=== PATIENT | female | born 1970 | race Caucasian/White ===

== ENCOUNTER → 2018-04-30 22:20 | Outpatient (CLI) | payer MEDICARE | END | disposition home or self-care (01) | LOC: D.MAMMO 13:15 | DX: Z12.31 Encounter for screening mammogram for malignant neoplasm of breast (principal) ==

== ENCOUNTER 2019-08-02 05:29 | Outpatient (CLI) | payer MEDICARE, OTHER ==
[~2019-08-02] VITALS: Ht 172.7 cm; Wt 90.9 kg
[2019-08-02 06:13] LABS: BASOPHILS 0.3 % (0-2); EOSINOPHILS 8.1 % (0-7); HEMATOCRIT 45.4 % (36.0-48.0); IMMATURE GRANULOCYTES 0.4 % (0-5); MCV 90.8 fL (80.0-100.0); MEAN PLATELET VOLUME 10.6 fL (7.4-10.4); MONOCYTES 5.9 % (2-11); NEUTROPHILS 58.3 % (40-80); PLATELET COUNT 179 10x3/uL (130-400); RDW 12.9 % (11.5-14.5)
[2019-08-02 06:14] LABS: APTT 27.1 SECONDS (22.8-39.4); INR 1.14 (0.85-1.17); PROTIME 14.1 SECONDS (11.6-15.0)
[2019-08-02 06:17] LABS: ANION GAP 10.2 mmol/L (8-16); CALCIUM 9.3 mg/dL (8.5-10.1); CARBON DIOXIDE 29.7 mmol/L (21.0-32.0); CREATININE - SERUM 0.9 mg/dL (0.6-1.3); POTASSIUM - SERUM 3.9 mmol/L (3.5-5.1)
[2019-08-02] MEDS ORDERED: CIMETIDINE200 MG PO (06:22)
[2019-08-02] MEDS ORDERED: SYNTHROID100 MCG PO (06:22)
[2019-08-02] MEDS ORDERED: ALPHAGAN P15 ML EACH EYE (06:22)
[2019-08-02] MEDS ORDERED: ZOCOR20 MG PO (06:22)
[2019-08-02] MEDS ORDERED: BENTYL10 MG PO (06:23)
[2019-08-02] MEDS ORDERED: ALENDRONATE SOD40 MG PO (06:23)
[2019-08-02] MEDS ORDERED: METAMUCIL PACKE1 PKT PO (06:24)
[2019-08-02] MEDS ORDERED: CITRACAL + D E1 EACH PO (06:24)
[2019-08-02 06:27] VITALS: Ht 172.7 cm; Wt 90.9 kg
[2019-08-02 07:20] LABS: HCG SERUM NEGATIVE (NEGATIVE)
--- NOTE | 2019-08-02 09:02 | NUR ---
0860 SEE POST PROCEDURE CHECKLIST FOR VITAL SIGN TRENDS. SISTER IN LAWS AT SIDE
--- NOTE | 2019-08-02 09:12 | NUR ---
0910 DOSING WITH HOB ELEVATED TO FULL POSITION, NO COUGHING NOTED. FAMILY AT SIDE. NPO.
--- NOTE | 2019-08-02 09:44 | NUR ---
5759 PT. SLEEPING, NO DISTRESS. FAMILY AT SIDE.
--- NOTE | 2019-08-02 10:03 | NUR ---
1000 SUKH GARCIA RN ROUNDS ON PT.
--- NOTE | 2019-08-02 10:43 | NUR ---
1045 PCXR HERE AND DONE. TOLERATED WELL
--- NOTE | 2019-08-02 11:36 | NUR ---
1135 PT ON O2 NC PER IR DEPT AND PT MEDICATED FOR MILD TO MODERATE PAIN AT INCISION SITE
--- NOTE | 2019-08-02 11:40 | NUR ---
1000 PT AWAKE, LUNGS CLEAR CARMEN NO SOB. WAITING FOR CXR FAMILY AT BEDSIDE
--- NOTE | 2019-08-02 11:41 | NUR ---
1125 PT REQUESTED PAIN MEDS FOR MILD INCISIONAL PAIN. IR CALLED ORDERS IN SYSTEM. 1135 MEDICATED FOR PAIN. AND PT ON PER REQUEST OF IR
--- NOTE | 2019-08-02 13:09 | NUR ---
1308 PORT CXR DONE.
--- NOTE | 2019-08-02 13:59 | NUR ---
IR HERE TO TALK WITH PT AND STATED THE XRAY RESULTS. ABLE TO GO HOME. IV REMOVED PRESSURE HELD AND INSTRUCTIONS GIVEN.
== END 2019-08-02 14:15 | disposition home or self-care (01) ==
LOC: D.SP 05:29 → D.CT 08:00 → D.SP 14:15
PROVIDERS: Specialist; ATTEND Internal Medicine Pulmonary Disease
DX: R91.8 Other nonspecific abnormal finding of lung field (principal)

== ENCOUNTER 2019-08-12 06:28 | Outpatient (CLI) | payer MEDICARE, OTHER ==
[~2019-08-12] VITALS: Ht 172.7 cm; Wt 92.7 kg
[~2019-08-12 06:28] MED LIST: ALENDRONATE SOD40 MG PO; ALPHAGAN P15 ML EACH EYE; BENTYL10 MG PO; CIMETIDINE200 MG PO; CITRACAL + D E1 EACH PO; METAMUCIL PACKE1 PKT PO; SYNTHROID100 MCG PO; ZOCOR20 MG PO
[2019-08-12 06:47] LABS: BASOPHILS 0.3 % (0-2); EOSINOPHILS 6.3 % (0-7); HEMATOCRIT 45.7 % (36.0-48.0); HEMOGLOBIN 15.1 g/dL (12-16); LYMPHOCYTES 24.9 % (15-50); MCH 29.7 pg (26.0-34.0); MCV 89.8 fL (80.0-100.0); MEAN PLATELET VOLUME 10.5 fL (7.4-10.4); NEUTROPHILS 62.5 % (40-80); PLATELET COUNT 183 10x3/uL (130-400); RBC 5.09 10x6/uL (4.00-5.40); RDW 12.7 % (11.5-14.5); WBC 7.2 10x3/uL (4.8-10.8)
[2019-08-12 07:00] LABS: APTT 27.7 SECONDS (22.8-39.4); INR 1.1 (0.85-1.17); PROTIME 13.7 SECONDS (11.6-15.0)
[2019-08-12 07:11] LABS: ANION GAP 13.3 mmol/L (8-16); CALCIUM 9.4 mg/dL (8.5-10.1); CREATININE - SERUM 0.9 mg/dL (0.6-1.3); POTASSIUM - SERUM 4.3 mmol/L (3.5-5.1)
[2019-08-12 07:28] VITALS: BP 122/73; Ht 172.7 cm; Wt 92.7 kg
[2019-08-12 07:59] LABS: HCG SERUM NEGATIVE (NEGATIVE)
== END 2019-08-12 12:10 | disposition home or self-care (01) ==
LOC: D.SP 06:28 → D.RAD 09:00 → D.SP 12:10
PROVIDERS: Radiology Diagnostic Radiology; ATTEND Family Medicine
DX: K86.89 Other specified diseases of pancreas (principal); E07.9 Disorder of thyroid, unspecified

== ENCOUNTER → 2019-08-26 09:05 | Outpatient (CLI) | payer MEDICARE, OTHER ==
[2019-08-12 07:28] VITALS: BMI 31.0
== END | disposition home or self-care (01) ==
LOC: D.RT 09:05
PROVIDERS: ATTEND Internal Medicine Pulmonary Disease
DX: J44.9 Chronic obstructive pulmonary disease, unspecified (principal)